=== PATIENT | female | born 1955 | race African-American/Black ===

== ENCOUNTER 2018-01-28 10:55 | Emergency (ER) | payer MEDICARE, OTHER, MEDICAID ==
[~2018-01-28] VITALS: Ht 157.5 cm; Wt 70.3 kg
[2018-01-28 11:14] VITALS: BP 192/72
[2018-01-28] MEDS ORDERED: LORazepam 1mg tab ORAL ONE (11:15)
[2018-01-28 11:48] LABS: BASOPHILS % (AUTO) 0.5 % (0.0-2.0); EOSINOPHILS % (AUTO) 0.4 % (0.0-3.0); HEMOGLOBIN 13.7 G/DL (12.0-16.0); LYMPHOCYTES % (AUTO) 12.2 % (20.0-45.0); MEAN CORPUSCULAR VOLUME 84 FL (80-99); NEUTROPHILS % (AUTO) 81.8 % (45.0-75.0); PLATELET COUNT 324 K/UL (150-450); RED BLOOD COUNT 5.13 M/UL (4.20-5.40); RED CELL DISTRIBUTION WIDTH 13.4 % (11.6-14.8); WHITE BLOOD COUNT 11.2 K/UL (4.8-10.8)
[2018-01-28 11:59] LABS: ANION GAP 10 mmol/L (5-15); BLOOD UREA NITROGEN 20 mg/dL (7-18); CALCIUM 9.4 MG/DL (8.5-10.1); CARBON DIOXIDE 29 MMOL/L (21-32); CHLORIDE 102 MMOL/L (98-107); CREATININE 1.1 MG/DL (0.55-1.30); SODIUM 140 MMOL/L (136-145)
[2018-01-28 12:05] LABS: ALANINE AMINOTRANSFERASE 30 U/L (12-78); ALBUMIN 4.2 G/DL (3.4-5.0); ALBUMIN/GLOBULIN RATIO 0.9 (1.0-2.7); ALKALINE PHOSPHATASE 150 U/L (46-116); ASPARTATE AMINO TRANSFERASE 34 U/L (15-37); BILIRUBIN,TOTAL 0.9 MG/DL (0.2-1.0); CREATINE KINASE 629 U/L (26-308)
--- NOTE | 2018-01-28 16:28 | Emergency Room Report ---
History of Present Illness General Chief Complaint: General Complaint Source: Patient, EMS Present Illness HPI Patient presented to [facility]. She states it was not safe for her to go back home. She is requesting a psychiatric evaluation and care. She states she's not suicidal. She states people are doing drugs at her house and getting her drugs. She admits to doing cocaine. She denies any alcohol. She denies any chest pain, headache, fever, nausea, vomiting, diarrhea or rashes. The patient has gone through drug rehabilitation for cocaine at the [facility] in the past. She relapsed recently. She denies any psychiatric illness or treatment. Allergies: Coded Allergies: CODEINE (Verified Allergy, Unknown, 01/28/18) Patient History Past Medical History: see triage record Social History: Reports: smoking, drug use Social History Narrative [employer] in past Reviewed Nursing Documentation: PMH: Agreed; PSxH: Agreed Nursing Documentation-PMH History Of Psychiatric Problem: No - PTSD Hx Cerebrovascular Accident: Yes Review of Systems All Other Systems: negative except mentioned in HPI Physical Exam Vital Signs Date Time Temp Pulse Resp B/P (MAP) Pulse Ox O2 Delivery O2 Flow Rate FiO2 01/28/18 11:00 98.6 100 18 192/72 98 Room Air Sp02 EP Interpretation: reviewed, normal General Appearance: well appearing, no apparent distress, GCS 15 Head: normocephalic Eyes: bilateral eye normal inspection, bilateral eye PERRL ENT: moist mucus membranes Neck: supple Respiratory: lungs clear, normal breath sounds Cardiovascular #1: regular rate, rhythm, no edema Cardiovascular #2: 2+ radial (R) Gastrointestinal: normal inspection, normal bowel sounds, non tender, no mass, non-distended, overweight Musculoskeletal: back normal, gait/station normal, normal range of motion Neurologic: alert, oriented x3, grossly normal Psychiatric: no suicidal/homicidal ideation, anxious - pressured Skin: normal inspection, warm/dry Medical Decision Making Diagnostic Impression: Primary Impression: Paranoid ideation Additional Impressions: Cocaine abuse HTN (hypertension) Qualified Codes: I10 - Essential (primary) hypertension ER Course Patient presents with paranoid ideation with history of cocaine abuse. Differential includes cocaine psycopathy, underlying paranoid delusions, electrolyte imbalance, occult infection amongst others. Patient will be evaluated with EKG and labs. Patient be treated with IV hydration and a dose of Ativan. EKG was sinus rhythm [address]-T wave changes will search criteria for left ventricular hypertrophy. CBC with slightly elevated white count, essentially normal CMP with minimally elevated CPK. Urinalysis clear with positive tox for THC and cocaine. Patient is improved with treatment but states that she wants to be transferred [facility]. She still has paranoid thoughts and feels unsafe about going home. BP high and will be treated. Discussed with [facility]. They do not take psychiatric patients. When patient told this, she states she wants to be discharged and will [facility]. Organized thought and no SI or HI. Has plan for care. Will call [facility] and notify her plan. Patient discharged. Stable for outpatient treatment and observation. Laboratory Tests Test 01/28/18 11:33 White Blood Count 11.2 K/UL (4.8-10.8) H Red Blood Count 5.13 M/UL (4.20-5.40) Hemoglobin 13.7 G/DL (12.0-16.0) Hematocrit 43.0 % (37.0-47.0) Mean Corpuscular Volume 84 FL (80-99) Mean Corpuscular Hemoglobin 26.6 PG (27.0-31.0) L Mean Corpuscular Hemoglobin Concent 31.8 G/DL (32.0-36.0) L Red Cell Distribution Width 13.4 % (11.6-14.8) Platelet Count 324 K/UL (150-450) Mean Platelet Volume 6.5 FL (6.5-10.1) Neutrophils (%) (Auto) 81.8 % (45.0-75.0) H Lymphocytes (%) (Auto) 12.2 % (20.0-45.0) L Monocytes (%) (Auto) 5.0 % (1.0-10.0) Eosinophils (%) (Auto) 0.4 % (0.0-3.0) Basophils (%) (Auto) 0.5 % (0.0-2.0) Sodium Level 140 MMOL/L (136-145) Potassium Level 3.0 MMOL/L (3.5-5.1) L Chloride Level 102 MMOL/L (98-107) Carbon Dioxide Level 29 MMOL/L (21-32) Anion Gap 10 mmol/L (5-15) Blood Urea Nitrogen 20 mg/dL (7-18) H Creatinine 1.1 MG/DL (0.55-1.30) Estimate Glomerular Filtration Rate > 60 mL/min (>60) Glucose Level 119 MG/DL (74-106) H Calcium Level 9.4 MG/DL (8.5-10.1) Total Bilirubin 0.9 MG/DL (0.2-1.0) Aspartate Amino Transferase (AST) 34 U/L (15-37) Alanine Aminotransferase (ALT) 30 U/L (12-78) Alkaline Phosphatase 150 U/L (46-116) H Total Creatine Kinase 629 U/L (26-308) H Troponin I 0.019 ng/mL (0.000-0.056) Total Protein 9.0 G/DL (6.4-8.2) H Albumin 4.2 G/DL (3.4-5.0) Globulin 4.8 g/dL Albumin/Globulin Ratio 0.9 (1.0-2.7) L Salicylates Level 5.3 ug/mL (2.8-20) Urine Opiates Screen Negative (NEGATIVE) Acetaminophen Level < 2 MCG/ML (10-30) L Urine Barbiturates Screen Negative (NEGATIVE) Phencyclidine (PCP) Screen Negative (NEGATIVE) Urine Amphetamines Screen Negative (NEGATIVE) Urine Benzodiazepines Screen Negative (NEGATIVE) Urine Cocaine Screen Positive (NEGATIVE) H Urine Marijuana (THC) Screen Positive (NEGATIVE) H Serum Alcohol < 3 mg/dL EKG Diagnostic Results Rate: normal Rhythm: NSR ST Segments: no acute changes Rhythm Strip Diag. Results EP Interpretation: yes Rhythm: NSR, no PVC's, no ectopy Last Vital Signs Date Time Temp Pulse Resp B/P (MAP) Pulse Ox O2 Delivery O2 Flow Rate FiO2 01/28/18 17:30 98.0 16 132/76 Room Air 01/28/18 11:14 98 01/28/18 11:14 100 Status: improved Disposition: HOME, SELF-CARE Condition: Improved Referrals: NOT CHOSEN IPA/,REFERRING (PCP) Charles Andrew MD Jan 28, 2018 16:28
[2018-01-28 17:30] VITALS: BP 132/76
== END 2018-01-28 17:35 | disposition home or self-care (01) ==
LOC: EDBD 10:55 → EMR 11:26
DX: F60.0 Paranoid personality disorder (principal); F14.10 Cocaine abuse, uncomplicated; I10 Essential (primary) hypertension; F43.10 Post-traumatic stress disorder, unspecified; Z86.73 Personal history of transient ischemic attack (TIA), and cerebral infarction without residual deficits; Z88.5 Allergy status to narcotic agent
CPT/HCPCS: 36415; 80053; 80307; 82550; 84484; 85025; 93005; 96360; 96361; 99284; G0480; 80329